=== PATIENT | female | born 2000 | race Caucasian/White ===

== ENCOUNTER 2019-09-25 13:35 | Emergency (ER) | payer OTHER ==
[~2019-09-25] VITALS: Ht 154.9 cm; Wt 79.4 kg
[~2019-09-25 13:35] MED LIST: PROZAC10 MG PO; RISPERDAL0.5 MG PO; TOPAMAX 25 MG T25 M1 PO; TRAZODONE HCL50 MG PO; TRILEPTAL150 MG PO
[2019-09-25 15:22] LABS: ABSOLUTE NEUTROPHILS 9.3 thou/uL (1.4-8.2); BASOPHILS 0.1 % (0.0-2.0); EOSINOPHILS 0.1 % (0.0-3.0); HEMATOCRIT 37.9 % (37.0-47.0); HEMOGLOBIN 13.1 gm/dL (12.0-15.0); LYMPHOCYTES 7.9 % (24.0-44.0); MCH 31.7 pg (26.0-34.0); MCHC 34.5 g/dL (28.0-37.0); MCV 91.8 fL (80.0-100.0); MONOCYTES 2.8 % (1.0-8.0); PLATELET COUNT 296 thou/uL (150-400); POLYS 89.1 % (36.0-66.0); RBC 4.13 mil/uL (4.20-5.00); RDW 12.5 % (10.5-14.5); WBC 10.5 thou/uL (4.0-11.0)
[2019-09-25 15:41] LABS: CALCIUM 9.4 mg/dL (8.5-10.1); CREATININE 0.7 mg/dL (0.6-1.0); POTASSIUM 3.1 mmol/L (3.5-5.1)
[2019-09-25] MEDS ORDERED: ZPAK PO (16:30)
[2019-09-25] MEDS ORDERED: PROAIR HFA8.5 GM INH (16:30)
[2019-09-25] MEDS ORDERED: ZOFRAN ODT4 MG PO (16:30)
[2019-09-25] MEDS ORDERED: PROMS25 WY RECTAL (17:37)
[2019-09-25 18:25] VITALS: BP 120/70
--- NOTE | 2019-09-26 08:36 | EKG ---
[facility] [place] [address] ELECTROCARDIOGRAM REPORT Name: DAVID MOLINA Room #: DEP [facility]#: [id number] Admission: 09/25/19 Attend Phys: Discharge: 09/25/19 Date of : [birth year] Report #: [id number] THIS REPORT FOR: cc: FAM - Family physician unknown FAM - Family physician unknown Obey Rosenbaum MD [facility] ~ THIS REPORT FOR: //name// [facility] ED Test Date: 2019-09-25 Test Time: 13:58:20 Pat Name: DAVID MOLINA Department: Room: Gender: Manager Floral: JAVI : 2000 Requested By: Anayeli Saxena Order Number: [id number] MD: Obey Rosenbaum Measurements Intervals [place] Rate: 125 P: 63 MT: 118 QRS: 54 QRSD: 76 T: 25 QT: 301 QTc: 434 Interpretive Statements Sinus tachycardia Otherwise normal tracing Compared to ECG 07/03/2014 10:38:58 Heart rate has increased Electronically Signed On 09-26-2019 8:34:32 CDT by Obey Rosenbaum [email or web address] <ELECTRONICALLY SIGNED> By: Obey Rosenbaum MD, FAC 09/26/19 [id number] Obey Rosenbaum MD, [facility] /EPI
[2019-09-26] MEDS ORDERED: DICYCLOMINE HCL10 MG PO (20:25)
== END 2019-09-25 18:26 | disposition home or self-care (01) ==
LOC: ER 13:35
PROVIDERS: Nurse Practitioner Family
DX: J18.9 Pneumonia, unspecified organism (principal); Z20.828 Contact with and (suspected) exposure to other viral communicable diseases; E86.0 Dehydration; R06.00 Dyspnea, unspecified; G43.909 Migraine, unspecified, not intractable, without status migrainosus; F17.210 Nicotine dependence, cigarettes, uncomplicated; Z88.0 Allergy status to penicillin; Z91.013 Allergy to seafood; Z98.890 Other specified postprocedural states

== ENCOUNTER 2019-09-26 15:17 | Inpatient (IN) | payer OTHER | END 2019-10-02 11:04 | disposition home or self-care (01) | DRG 196 | LOC: ER 15:17 → EROBS 15:35 → 3W 19:18 | PROVIDERS: ADMIT Hospitalist | DX: J84.9 Interstitial pulmonary disease, unspecified (principal); J96.91 Respiratory failure, unspecified with hypoxia; R45.851 Suicidal ideations; F32.9 Major depressive disorder, single episode, unspecified; F41.9 Anxiety disorder, unspecified; R59.0 Localized enlarged lymph nodes; G43.909 Migraine, unspecified, not intractable, without status migrainosus; F19.10 Other psychoactive substance abuse, uncomplicated; E86.0 Dehydration; R00.0 Tachycardia, unspecified; R59.1 Generalized enlarged lymph nodes; D86.9 Sarcoidosis, unspecified; F17.200 Nicotine dependence, unspecified, uncomplicated; U07.0 Vaping-related disorder; J68.9 Unspecified respiratory condition due to chemicals, gases, fumes and vapors; K58.9 Irritable bowel syndrome, unspecified; Z20.828 Contact with and (suspected) exposure to other viral communicable diseases; Z79.899 Other long term (current) drug therapy; Z91.011 Allergy to milk products; Z88.0 Allergy status to penicillin; Z91.013 Allergy to seafood ==

== ENCOUNTER → 2019-11-17 | Outpatient (CLI) | payer OTHER ==
[~2019-11-17] MED LIST changes: +CEFUROXIME500 MG PO; +DICYCLOMINE HCL10 MG PO; +PREDNISONE 5 MG5 M1 PO; +PROAIR HFA8.5 GM INH; +PROMS25 WY RECTAL; +ZOFRAN ODT4 MG PO; +ZPAK PO
== END ==
LOC: CAT 09:23
PROVIDERS: ATTEND Internal Medicine Pulmonary Disease
DX: R59.0 Localized enlarged lymph nodes (principal)

== ENCOUNTER 2021-04-29 17:17 | Emergency (ER) | payer OTHER ==
[~2021-04-29] VITALS: Ht 154.9 cm; Wt 79.4 kg
[2021-04-29 18:18] VITALS: BP 148/98
[2021-04-29 19:04] LABS: ABSOLUTE NEUTROPHILS 4.8 thou/uL (1.4-8.2); BASOPHILS 0.4 % (0.0-2.0); EOSINOPHILS 1.8 % (0.0-3.0); HEMATOCRIT 42.5 % (37.0-47.0); HEMOGLOBIN 14.6 gm/dL (12.0-15.0); LYMPHOCYTES 16.3 % (24.0-44.0); MCH 32.4 pg (26.0-34.0); MCHC 34.4 g/dL (28.0-37.0); MCV 94.2 fL (80.0-100.0); MONOCYTES 8.8 % (1.0-8.0); PLATELET COUNT 169 thou/uL (150-400); POLYS 72.7 % (36.0-66.0); RBC 4.51 mil/uL (4.20-5.00); RDW 13.4 % (10.5-14.5); WBC 6.6 thou/uL (4.0-11.0)
[2021-04-29 19:05] LABS: CALCIUM 9.2 mg/dL (8.5-10.1); CREATININE 0.6 mg/dL (0.6-1.0); POTASSIUM 3.4 mmol/L (3.5-5.1)
[2021-04-29 19:12] LABS: ALBUMIN 4.2 g/dL (3.4-5.0); TOTAL BILIRUBIN 0.7 mg/dL (0.2-1.0)
[2021-04-29] MEDS ORDERED: DOXYCYCLINE 10100 MG PO (21:53)
[2021-04-29] MEDS ORDERED: PREDNISONE 20 M20 M1 PO (21:53)
== END 2021-04-29 22:53 | disposition home or self-care (01) ==
LOC: ER 17:17
PROVIDERS: Emergency Medicine
DX: U07.1 COVID-19 (principal); G43.909 Migraine, unspecified, not intractable, without status migrainosus; F32.9 Major depressive disorder, single episode, unspecified; F41.9 Anxiety disorder, unspecified; J44.9 Chronic obstructive pulmonary disease, unspecified; F17.210 Nicotine dependence, cigarettes, uncomplicated; Z79.899 Other long term (current) drug therapy; Z91.013 Allergy to seafood; Z88.0 Allergy status to penicillin